=== PATIENT | female | born 1985 | race Caucasian/White ===

== ENCOUNTER 2016-11-21 19:56 | Emergency (ER) | payer MEDICAID ==
[~2016-11-21] VITALS: Ht 157.5 cm; Wt 57.2 kg
[2016-11-21 20:16] VITALS: BP_SYST 129
--- NOTE | 2016-11-21 20:53 | NUR ---
Patient to ER bed 04 to gown for evaluation. Side rails up.
[2016-11-21 20:57] LABS: BILIRUBIN,URINE NEGATIVE (NEGATIVE); BLOOD, URINE NEGATIVE (NEGATIVE); CLARITY/URINE CLEAR (CLEAR); COLOR,URINE YELLOW (YELLOW); GLUCOSE,URINE NEGATIVE (NEGATIVE); KETONES,URINE NEGATIVE (NEGATIVE); LEUKOCYTE ESTERASE ,URINE NEGATIVE (NEGATIVE); NITRITE, URINE NEGATIVE (NEGATIVE); PH,URINE 7.5 (5.0-8.0); PROTEIN URINE NEGATIVE (NEGATIVE); UROBILINOGEN,URINE 0.2 (0.2-1.0)
[2016-11-21] MEDS ORDERED: KETOROLAC TROMETHAMINE 60 MG/2 ML VIAL IM ONE (21:00)
--- NOTE | 2016-11-21 21:00 | NUR ---
Patient to ER C/O 2 weeks of mid back pain 11/13, non-radiating. Patient denies injury or trauma. Patient also C/O of 2 days of dry cough. AAOx4, unlabored breathing, clear lungs, afebrile, no signs of acute distress.
--- NOTE | 2016-11-21 21:06 | NUR ---
ER ANANYA Brown at bedside evaluating the patient
[2016-11-21 21:57] VITALS: BP_SYST 124
--- NOTE | 2016-11-21 21:57 | NUR ---
Patient given written and verbal discharge instructions and verbalizes understanding. ER [employer] Stephanie Jackson discussed with patient the results and treatment provided. Patient in stable condition. ID arm band removed. Rx of Motrin & Tramadol given. Patient educated on pain management and to follow up with PMD. Pain Scale 0/10. Opportunity for questions provided and answered.
== END 2016-11-21 21:57 | disposition home or self-care (01) ==
LOC: SED 19:56
DX: S29.012A Strain of muscle and tendon of back wall of thorax, initial encounter (principal); X58.XXXA Exposure to other specified factors, initial encounter; Y93.89 Activity, other specified; Y92.89 Other specified places as the place of occurrence of the external cause; Y99.8 Other external cause status
CPT/HCPCS: 81003; 81025; 96372; 99283; J1885

== ENCOUNTER 2020-03-24 14:16 | Emergency (ER) | payer MEDICAID ==
[~2020-03-24] VITALS: Ht 160 cm; Wt 59.0 kg
[2020-03-24 14:20] VITALS: BP_SYST 121
--- NOTE | 2020-03-24 14:20 | NUR ---
Patient triaged and placed in waiting room. VSS and patient appears in no acute distress at this time. Accompanied by SELF, awaiting available bed, and MD notified of need for MSE.
--- NOTE | 2020-03-24 15:00 | NUR ---
BROUGHT BACK TO BED #6 AND TRIAGED. REPORT GIVEN TO LM
--- NOTE | 2020-03-24 15:10 | NUR ---
pt arrives w/ left ear pain 6/10, muffled sounds. pt is currently afebrile. no other c/o at the moment
--- NOTE | 2020-03-24 15:12 | NUR ---
ER at bedside examining patient.
--- NOTE | 2020-03-24 15:23 | NUR ---
Patient given written and verbal discharge instructions and verbalizes understanding. ER MD discussed with patient the results and treatment provided. Patient in stable condition. ID arm band removed. Rx of Naprosyn, Amoxicillin, [place], and Ofloxacin given. Patient educated on pain management and to follow up with PMD. Pain Scale 3/10. Opportunity for questions provided and answered. Medication side effect fact sheet provided.
[2020-03-24 15:26] VITALS: BP_SYST 121
== END 2020-03-24 15:23 | disposition home or self-care (01) ==
LOC: SED 14:54
DX: H66.92 Otitis media, unspecified, left ear (principal); H60.8X2 Other otitis externa, left ear
CPT/HCPCS: 99283